=== PATIENT | male | born 1970 | race Caucasian/White ===

== ENCOUNTER 2016-12-08 21:50 | Emergency (ER) | payer MEDICAID ==
--- NOTE | 2016-12-08 22:07 | Emergency Department Record ---
History of Present Illness - General Chief complaint: Pain Stated complaint: LEFT SHOULDER PAIN Time Seen by Provider: 12/08/16 22:00 Source: Patient Mode of Arrival: Ambulatory Limitations: No limitations - History of Present Illness Initial comments: 46 yo male presents with left shoulder pain since "he woke up' from left shoulder replacement in September at [facility]. He has pain with internal and external ROM. He has better ROM with flexion and extension. No numbness. No redness or swelling. No fevers or chills. MD Complaint: Extremity pain, Joint pain -: Month(s) Location: Left History of Same: Yes -: Yes Arthralgia Radiation: Proximal Quality: Aching Consistency: Constant Improves with: Immobilization Worsens with: Weight bearing Associated Symptoms: Denies other symptoms - Related Data Home Medications Medication Instructions Recorded Confirmed Last Taken Gabapentin [Gabapentin] 300 mg PO QAM 12/08/16 12/08/16 Unknown Gabapentin [Gabapentin] 300 mg PO QHS 12/08/16 12/08/16 Unknown Gabapentin [Gabapentin] 300 mg PO QPM 12/08/16 12/08/16 Unknown Lidocaine [Lidocaine] 1 patch TOP ASDIR 12/08/16 12/08/16 Unknown Tramadol HCl [Tramadol HCl] 1 - 2 tab PO Q6H 12/08/16 12/08/16 Unknown Previous Rx's Medication Instructions Recorded Hydrocodone/Acetaminophen [[place] 1 tab PO Q8H PRN #15 tab 12/08/16 7.5mg/325mg] Allergies Allergy/AdvReac Type Severity Reaction Status Date / Time No Known Drug Allergies Allergy Verified 11/24/15 22:27 Review of Systems Constitutional: Denies: Chills, Fever, Malaise, Weakness Eyes: Denies: Eye discharge ENT: Denies: Congestion, Throat pain Respiratory: Denies: Cough Cardiovascular: Denies: Chest pain, Palpitations, Syncope Endocrine: Denies: Fatigue Gastrointestinal: Denies: Abdominal pain, Diarrhea, Nausea, Vomiting Musculoskeletal: Reports: Arthralgia. Denies: Back pain, Joint swelling, Myalgia, Neck pain Skin: Denies: Bruising, Change in color, Rash Neurological: Denies: Confusion, Headache Psychiatric: Denies: Anxiety Hematological/Lymphatic: Denies: Blood Clots, Easy bleeding, Easy bruising, Swollen glands Past Medical History - SOCIAL HISTORY Smoking Status: Current every day smoker - RESPIRATORY Hx Respiratory Disorders: No - CARDIOVASCULAR Hx Cardio Disorders: No - NEURO Hx Neuro Disorders: No - GI Hx GI Disorders: No - Hx Genitourinary Disorders: Yes Hx Kidney Stones: Yes - ENDOCRINE Hx Endocrine Disorders: No - MUSCULOSKELETAL Hx Back Injury: Yes - PSYCH Hx Psych Problems: No - HEMATOLOGY/ONCOLOGY Hx Hematology/Oncology Disorders: No Physical Exam - General General Appearance: Alert, Oriented x3, Cooperative, No acute distress - Head Head exam: Normal inspection - Eye Eye exam: Normal appearance, PERRL - ENT ENT exam: Normal exam Ear exam: Normal external inspection Nasal Exam: Normal inspection Mouth exam: Normal external inspection - Neck Neck exam: Normal inspection - Respiratory Respiratory exam: Normal lung sounds bilaterally. negative: Respiratory distress - Cardiovascular Cardiovascular Exam: Regular rate, Normal rhythm, Normal heart sounds Peripheral Pulses: 2+: Radial (L) - Rectal Rectal exam: Deferred - exam: Deferred - Extremities Extremities exam: Normal inspection, Normal capillary refill, Tenderness. negative: Full ROM, Joint swelling Image of Full Body: 1 - normal inspection, no swelling or redness, smooth flexion and extension, pain with internal and external rotation, intact sensation and pulses - Back Back exam: Reports: Normal inspection - Neurological Neurological exam: Alert, Normal gait, Oriented X3. negative: Motor sensory deficit - Psychiatric Psychiatric exam: Normal affect, Normal mood. negative: Agitated, Anxious - Skin Skin exam: Dry, Intact, Normal color, Warm Course - Reevaluation(s) Reevaluation #1: XR ordered for left shoulder pain 12/08/16 22:07 Reevaluation #2: The XR was reviewed No acute process on the prelim read. The patient was given a copy of his XR to take to his orthopedist 12/08/16 22:35 Disposition Disposition: Discharge Clinical Impression: Left shoulder pain Qualifiers: Chronicity: acute Qualified Code(s): M25.512 - Pain in left shoulder Disposition: Home, Self-Care Condition: (1) Good Instructions: Arthralgia (ED) Additional Instructions: Call your orthopedist for close follow up of your ongoing pain Call your family doctor for any further discussion about pain control options as well Prescriptions: Hydrocodone/Acetaminophen [[place] 7.5mg/325mg] 1 tab PO Q8H PRN #15 tab PRN Reason: Pain - General Forms: Patient Portal Access Time of Disposition: 22:38
[2016-12-08] MEDS ORDERED: HYDROCODONE/APAP 7.5/325MG TABLET PO ONE (22:34)
--- NOTE | 2016-12-12 14:46 | RADIOLOGY REPORT ---
DATE: 12/08/2016 at 10:08 p.m. EXAM: LEFT SHOULDER. HISTORY: Multiple left shoulder surgeries; most recently 09/11/2016 with pain since. TECHNIQUE: Three views of the left shoulder were obtained. COMPARISON: Left shoulder dated 12/18/2015. FINDINGS: The patient has had a left shoulder arthroplasty performed since the prior study. No dislocation evident to the left shoulder. Mild spurring at the acromioclavicular joint. The left shoulder appears otherwise negative. IMPRESSION: 1. POSTOPERATIVE LEFT SHOULDER ARTHROPLASTY. 2. MILD SPURRING AT THE ACROMIOCLAVICULAR JOINT. JOB NUMBER: [id number] MTDD
== END 2016-12-08 23:02 | disposition home or self-care (01) ==
LOC: ER 21:50
DX: M25.512 Pain in left shoulder (principal); Z96.612 Presence of left artificial shoulder joint
CPT/HCPCS: 99283